=== PATIENT | male | born 1960 | race Two or more races ===

== ENCOUNTER 2022-08-29 07:12 | Day surgery (SDC) | payer BC ==
[~2022-08-29] VITALS: Ht 182.9 cm; Wt 98.9 kg
[~2022-08-29 07:12] MED LIST: ALBU108A5 IN; FLUT50SP; OMEP20TA PO; ROSU20TA14 PO
[2022-08-29] MEDS ORDERED: VERAPAMIL 2.5MG/ML INJ 2ML VIAL IV ONE (07:46)
[2022-08-29] MEDS ORDERED: ANGIOMAX 250 MG VIAL IV ONE ×2 (07:46→09:15)
[2022-08-29] MEDS ORDERED: HEPARIN SODIUM (PORCINE) 5000 UNITS/ML 1ML VIAL ONE (07:46)
[2022-08-29] MEDS ORDERED: SODIUM CHL 0.9% 50 ML ONE ×2 (07:47→09:15)
[2022-08-29] MEDS ORDERED: fentaNYL CITRATE 100 MCG/2 ML VL ONE (07:47)
[2022-08-29] MEDS ORDERED: IODIXANOL 320MG/ML 100ML BTL IV ONE ×2 (07:47→08:32)
[2022-08-29] MEDS ORDERED: MIDAZOLAM HCL 2MG/2ML 2ml VIAL (1mg/ml) ONE (07:47)
[2022-08-29] MEDS ORDERED: LIDOCAINE 2%HCL (LOCAL ANESTH.) INJ 20ML MDV ONE (07:47)
[2022-08-29] MEDS ORDERED: ASPirin 325 MG TAB ONE (08:45)
[2022-08-29] MEDS ORDERED: TICAGRELOR 90 MG TAB ONE (08:45)
[2022-08-29] MEDS ORDERED: TICA90TA PO (10:15)
[2022-08-29] MEDS ORDERED: ASPI-543 PO (10:30)
== END 2022-08-29 11:30 | disposition home or self-care (01) ==
LOC: CATH 07:12
PROVIDERS: ATTEND Internal Medicine Cardiovascular Disease
DX: I25.10 Atherosclerotic heart disease of native coronary artery without angina pectoris (principal); I65.22 Occlusion and stenosis of left carotid artery; I10 Essential (primary) hypertension; E78.5 Hyperlipidemia, unspecified; K21.9 Gastro-esophageal reflux disease without esophagitis; Z88.0 Allergy status to penicillin; Z82.49 Family history of ischemic heart disease and other diseases of the circulatory system; Z79.82 Long term (current) use of aspirin; Z79.899 Other long term (current) drug therapy
CPT/HCPCS: 76937; 92978; 93458; C1725; C1769; C1874; C1887; C1894; C9600; J0583; J1644; J2250; J3010; Q9967; 99152; 99153

== ENCOUNTER 2023-06-22 11:13 | Inpatient (IN) | payer BC, MEDICARE ==
[~2023-06-22] VITALS: Ht 182.9 cm; Wt 92.7 kg
[~2023-06-22 11:13] MED LIST changes: +ASPI-543 PO; +TICA90TA PO
[2023-06-22 12:11] LABS: Alanine Aminotransferase 31 U/L (7-40); Albumin 4.7 g/dL (3.2-4.8); Alkaline Phosphatase 72 U/L (46-116); Anion Gap 12 (5-15); Aspartate Aminotransferase 30 U/L (13-40); BUN/Creatinine Ratio 10.6 (10.0-20.0); Bilirubin, Total 1.3 mg/dL (0.2-1.0); Blood Urea Nitrogen 14 mg/dL (9-23); Calcium 10.2 mg/dL (8.5-10.1); Carbon Dioxide 20 mmol/L (20-30); Chloride 105 mmol/L (98-107); Glucose 126 mg/dL (74-106); Potassium 3.9 mmol/L (3.5-5.1); Sodium 137 mmol/L (136-145); Total Protein 7.3 g/dL (5.7-8.2)
[2023-06-22 12:14] LABS: Basophils # (auto) 0 10 ^3/uL (0-0.2); Basophils % (auto) 0.4 % (0.0-2.0); Eosinophils # (auto) 0.2 10 ^3/uL (0-0.8); Eosinophils % (auto) 1.7 % (0.0-7.0); Hematocrit 48.5 % (41.0-53.0); Hemoglobin 16.4 g/dL (13.5-17.5); Lymphocytes # (auto) 1.2 10 ^3/uL (0.4-5.4); Lymphocytes % (auto) 10.6 % (10.0-50.0); Mean Corpuscular Hemoglobin 31.2 pg (28.0-32.0); Mean Corpuscular Hgb Conc. 33.9 g/dL (32.0-36.0); Mean Corpuscular Volume 92.1 fL (80.0-100.0); Monocytes % (auto) 8.9 % (0.0-12.0); Neutrophils # (auto) 9.1 10 ^3/uL (1.6-8.6); Neutrophils % (auto) 78.4 % (37.0-80.0); Nucleated Red Blood Cells % 0.2 %; Red Blood Cells 5.27 10^6/uL (4.5-5.90); Red Cell Distribution Width 13.5 % (11.8-14.3); White Blood Cell 11.6 10^3/uL (4.4-10.8)
[2023-06-22] MEDS: SODIUM CHLORIDE 0.9% 1,000 ML IV ONE ×2 (12:56→13:47)
[2023-06-22 13:00] LABS: Urine Bacteria NONE SEEN /hpf (None Seen); Urine Blood 3+ /uL (Negative); Urine Clarity Clear (Clear); Urine Color Yellow (Yellow); Urine Mucus FEW (None Seen); Urine Protein, UAD TRACE (Negative); Urine Specific Gravity 1.023 (1.001-1.035); Urine WBC 10 /hpf (0 - 3); Urine pH 5.5 (5.0-8.0)
[2023-06-22] MEDS: KETOROLAC TROMETH 30 MG/ML 1ML VIAL IV ONE (13:12)
[2023-06-22] MEDS: ONDANSETRON HCL 4 MG/2 ML VIAL IV ONE (13:12)
[2023-06-22] MEDS: FUROSEMIDE 40 MG/4 ML VIAL IV ONE (13:55)
[2023-06-22] MEDS: SODIUM CHLORIDE 0.9% 1,000 ML IVB ONE (13:55)
[2023-06-22 13:58] VITALS: PULSE 86; RESP 18; O2SAT 98
[2023-06-22] MEDS: cefTRIAXone 1GM/50ML D5W 50 ML IV ONE (15:37)
[2023-06-22] MEDS: SODIUM CHLORIDE 0.9% 1,000 ML IV SCH (15:45)
[2023-06-22] MEDS ORDERED: ONDANSETRON HCL 4 MG/2 ML VIAL IV PRN (15:45)
[2023-06-22] MEDS ORDERED: ACETAMINOPHEN 325 MG TAB PO PRN (15:45)
[2023-06-22] MEDS ORDERED: MANNITOL FTV 25% 12.5 GM/50 ML 50 ML IV ONE (17:30)
[2023-06-22] MEDS: HYDROcodone-ACET 5/325MG TAB PO PRN (18:17)
[2023-06-22] MEDS: TAMSULOSIN HYDROCHLORIDE 0.4 MG CAP PO SCH (18:17)
[2023-06-22 20:07] VITALS: BP 148/91; PULSE 78; RESP 16; TEMP 98.1; O2SAT 98
[2023-06-23] MEDS ORDERED: cefTRIAXone 1GM/50ML D5W 50 ML IV SCH (09:00)
[2023-06-23] MEDS ORDERED: ENOXAPARIN SOD 30 MG/0.3 ML SYRINGE SC SCH (10:00)
[2023-06-23] MEDS ORDERED: ENOXAPARIN SOD 40 MG/0.4 ML SYRINGE SC SCH (10:00)
== END 2023-06-22 23:50 | disposition left against medical advice (07) | DRG 694 ==
LOC: ER 11:13 → OVERFLOW 15:42
PROVIDERS: ADMIT Internal Medicine; ATTEND Internal Medicine
DX: N13.2 Hydronephrosis with renal and ureteral calculous obstruction (principal); N17.0 Acute kidney failure with tubular necrosis; I10 Essential (primary) hypertension; I25.10 Atherosclerotic heart disease of native coronary artery without angina pectoris; E78.5 Hyperlipidemia, unspecified; K21.9 Gastro-esophageal reflux disease without esophagitis; E83.52 Hypercalcemia; Z53.29 Procedure and treatment not carried out because of patient's decision for other reasons; D72.829 Elevated white blood cell count, unspecified; Z88.0 Allergy status to penicillin; Z79.82 Long term (current) use of aspirin; Z79.899 Other long term (current) drug therapy; Z98.61 Coronary angioplasty status; Z79.02 Long term (current) use of antithrombotics/antiplatelets
CPT/HCPCS: 36415; 74176; 80053; 81001; 85025; 93005; 96361; 96374; 96375; G0378; J1885; J2405